=== PATIENT | male | born 1970 | race African-American/Black ===

== ENCOUNTER 2017-08-08 20:29 | Emergency (ER) | payer MEDICAID ==
[~2017-08-08] VITALS: Ht 172.7 cm; Wt 92.3 kg
[~2017-08-08 20:29] MED LIST: GABA-529 PO; METF500T4 PO; SITA50TA3 PO; albuterol
[2017-08-09 00:27] VITALS: BP 118/75
[2017-08-09] MEDS ORDERED: KETOROLAC 30MG/ML VIAL IM ONE (01:45)
[2017-08-09] MEDS ORDERED: ONDANSETRON 4MG ODT PO PRN (01:45)
== END 2017-08-09 02:51 | disposition left against medical advice (07) ==
LOC: ER 08-09 00:01
DX: M79.672 Pain in left foot (principal); E11.9 Type 2 diabetes mellitus without complications; J45.909 Unspecified asthma, uncomplicated
CPT/HCPCS: 73630; 99284; J1885; Q0162

== ENCOUNTER 2024-10-25 15:22 | Emergency (ER) | payer MEDICAID, OTHER ==
[~2024-10-25] VITALS: Ht 177.8 cm; Wt 97.0 kg
[~2024-10-25 15:22] MED LIST changes: +METF-414 PO; -METF500T4 PO
[2024-10-25 15:29] VITALS: O2SAT 98
[2024-10-25 15:57] VITALS: BP 97/60; PULSE 92; RESP 14; TEMP 97.9; O2SAT 100
[2024-10-25 19:43] LABS: BASOPHILS % 0.5 % (0.0-2.0); EOSINOPHILS % 6.6 % (0.0-5.0); HEMATOCRIT. 36.4 % (42.0-52.0); LYMPHOCYTES % 34.7 % (20.0-50.0); MEAN CORPUSCULAR HEMOGLOBIN 29.2 pg (28.0-32.0); MEAN CORPUSCULAR HGB CONC 32.9 g/dL (31.0-37.0); MEAN CORPUSCULAR VOLUME 88.6 fL (80.0-94.0); MEAN PLATELET VOLUME 9.2 fl (7.4-10.4); MONOCYTES % 5.6 % (2.0-8.0); NEUTROPHILS % 52.6 % (40.0-76.0); PLATELET 274 x1000/uL (130-400); RED BLOOD CELL COUNT 4.11 mill/uL (4.7-6.1); RED CELL DISTRIBUTION WIDTH 13.9 % (11.6-14.6); WHITE BLOOD COUNT 7.2 x1000/uL (4.5-11.0)
[2024-10-25 19:45] LABS: CLARITY URINE CLEAR (CLEAR); COLOR URINE YELLOW (YELLOW); PH URINE 5.5 (4.5-8.0); SPECIFIC GRAVITY URINE 1.019 (1.005-1.030)
[2024-10-25 19:46] LABS: GLUCOSE URINE NEGATIVE (NEGATIVE); KETONES URINE TRACE (NEGATIVE); LEUKOCYTE ESTERASE URINE NEGATIVE (NEGATIVE); NITRITE URINE NEGATIVE (NEGATIVE); OCCULT BLOOD URINE NEGATIVE (NEGATIVE); PROTEIN URINE TRACE (NEGATIVE); UROBILINOGEN URINE 0.2 E.U./dL (0.2-1.0)
[2024-10-25 19:49] LABS: CHLORIDE 105 mEq/L (98-107); SODIUM 137 mEq/L (136-145)
[2024-10-25 19:50] LABS: CALCIUM 8.9 mg/dL (8.7-10.4); CARBON DIOXIDE 26 mEq/L (21-32)
[2024-10-25 19:51] LABS: BACTERIA URINE TRACE; RBC URINE NONE SEEN /hpf (0-2); SQUAMOUS EPITHELIAL CELL URINE FEW /lpf (RARE/1+); WBC URINE 0-2 /hpf (0-2)
[2024-10-25 19:55] LABS: GLUCOSE 287 mg/dL (70-105); UREA NITROGEN BLOOD 27 mg/dL (9-23)
[2024-10-25 19:56] LABS: TROPONIN I HIGH SENSITIVITY 4 ng/L (3.0-53)
[2024-10-25 20:05] LABS: CREATININE 1.8 mg/dL (0.6-1.3)
[2024-10-25] MEDS: SODIUM CHLORIDE 0.9% 1,000 ML IV ONE (21:30)
== END 2024-10-25 21:50 | disposition left against medical advice (07) ==
LOC: ER 15:22
DX: N17.9 Acute kidney failure, unspecified (principal); E87.5 Hyperkalemia; E11.9 Type 2 diabetes mellitus without complications; Z79.84 Long term (current) use of oral hypoglycemic drugs; Z79.899 Other long term (current) drug therapy
CPT/HCPCS: 99284; 80048; 81003; 83735; 85025; 84484; 36415; 93005; J7030